=== PATIENT | male | born 1930 | race Caucasian/White ===

== ENCOUNTER 2019-10-26 10:14 | Inpatient (IN) ==
[2019-10-26 10:46] LABS: Basophils % 0.3 % (0.0-0.8); Eosinophils % 0.3 % (0.00-10.9); Hematocrit 26.3 VOL% (42.0-52.0); Immature Granulocytes % 2.3 %; Immature Granulocytes Absolute 0.27 #; Lymphocytes # 0.6 10*3/uL (1.4-4.0); Lymphocytes % 5.4 % (21.2-54.2); Mean Corpuscular HGB Conc 30.4 GM/DL (32-36); Mean Corpuscular Volume 89.2 FL (87-102); Mean Platelet Volume 12.4 FL (9.6-12.0); Monocytes % 7.7 % (1.7-12.7); NRBC # 0.02 10*3/uL; Platelet Count 185 T/CUMM (130-400); Red Blood Count 2.95 MC/CUMM (3.8-5.5); Red Cell Distribution Width 17.2 % (9.3-17.3); White Blood Count 11.8 T/CUMM (4-12)
[2019-10-26 10:54] LABS: PT Patient Result 11.1 SECS (9.6-12.2); Partial Thromboplastin Time 27.5 SECS (20.8-36.0)
[2019-10-26 11:06] LABS: Albumin 3.3 G/DL (3.4-5.0); Bilirubin,Total 0.9 MG/DL (0.2-1.0); Calcium 8.5 MG/DL (8.5-10.1); Osmolality,Calculated 297.1 MOS/KG (273-304); Total Protein 6.5 G/DL (6.4-8.3)
[2019-10-26] MEDS ORDERED: cefTRIAXone 1,000 MG in SODIUM CHLORIDE 0.9% 100 ML IV STA (11:27)
[2019-10-26] MEDS ORDERED: methylPREDNISolone SOD SUC 125 MG/2 ML VIAL IV STA (11:27)
[2019-10-26] MEDS ORDERED: ALBUTEROL/IPRATROPIUM 3 ML NEB RESP TX STA (11:27)
[2019-10-26 11:53] LABS: Albumin 3.3 G/DL (3.4-5.0); Bilirubin,Total 0.6 MG/DL (0.2-1.0); Calcium 8.2 MG/DL (8.5-10.1); Total Protein 6.1 G/DL (6.4-8.3)
[2019-10-26] MEDS ORDERED: FUROSEMIDE 100 MG/10 ML VIAL IV STA (12:16)
[2019-10-26] MEDS ORDERED: FUROSEMIDE 100 MG/10 ML VIAL ONE (12:16)
[2019-10-26] MEDS ORDERED: ACETAMINOPHEN 325 MG TABLET PO PRN (13:50)
[2019-10-26] MEDS ORDERED: ONDANSETRON 4 MG/2 ML VIAL IV PRN (13:50)
[2019-10-26 14:36] LABS: Apearance,Urine CLEAR (Clear); Bilirubin,Urine Negative (Negative); Blood, Urine Negative (Negative); Glucose,Urine (UA) Negative (Negative); Hyaline Casts,Urine 22 /LPF (0-3); Ketones,Urine Negative (Negative); Mucus,Urine Occasional /LPF (Occasional); Nitrite,Urine Negative (Negative); Protein,Urine Negative; RBC,Urine 2 /HPF (0-4); Squamous Epithelial Cell,Urine Occasional /HPF (0-10); Urine Color Yellow (Yellow); Urine Specific Gravity 1.012 (1.001-1.035); Urine Urobilinogen < 2.0 EU/DL (0.2-1.0); WBC,Urine 4 /HPF (0-6)
[2019-10-26] MEDS ORDERED: FUROSEMIDE 40 MG/4 ML VIAL IV SCH (16:00)
[2019-10-26] MEDS: ALBUTEROL/IPRATROPIUM 3 ML NEB RESP TX SCH (19:29)
[2019-10-27] MEDS: ALBUTEROL/IPRATROPIUM 3 ML NEB RESP TX SCH ×5 (00:12→23:37)
[2019-10-27 04:47] LABS: Basophils % 0.2 % (0.0-0.8); Hematocrit 23.6 VOL% (42.0-52.0); Hemoglobin 7.3 GM/DL (14.0-18.0); Immature Granulocytes % 2.9 %; Immature Granulocytes Absolute 0.16 #; Lymphocytes # 0.3 10*3/uL (1.4-4.0); Lymphocytes % 4.8 % (21.2-54.2); Mean Corpuscular HGB Conc 30.9 GM/DL (32-36); Mean Corpuscular Volume 86.8 FL (87-102); Mean Platelet Volume 13.1 FL (9.6-12.0); Monocytes % 1.8 % (1.7-12.7); NRBC # 0.03 10*3/uL; Neutrophils % 90.3 % (38.7-73.9); Platelet Count 168 T/CUMM (130-400); Red Blood Count 2.72 MC/CUMM (3.8-5.5); White Blood Count 5.5 T/CUMM (4-12)
[2019-10-27 05:08] LABS: Band Neutrophils 2 % (0-10); Hypochromasia 1+; Lymphocytes 4 % (20-55); Ovalocytes Slight; Platelet Estimate Adequate; Segmented Neutrophils 93 % (50-85); Total Cells Counted 100
[2019-10-27 05:27] LABS: Calcium 8.3 MG/DL (8.5-10.1); Osmolality,Calculated 297.2 MOS/KG (273-304)
[2019-10-27] MEDS: ASPIRIN EC 81 MG TABLET PO SCH (08:35)
[2019-10-27] MEDS: allopurinoL 300 MG TABLET PO SCH (08:35)
[2019-10-27] MEDS: FINASTERIDE 5 MG TABLET PO SCH (08:35)
[2019-10-27] MEDS: PANTOPRAZOLE 40 MG TABLET PO SCH (08:35)
[2019-10-27] MEDS: TAMSULOSIN 0.4 MG CAPSULE PO SCH (08:35)
[2019-10-27] MEDS: FUROSEMIDE 40 MG/4 ML VIAL IV SCH ×2 (08:35→16:47)
[2019-10-27] MEDS ORDERED: AMIODARONE 200 MG TABLET PO SCH (12:45)
[2019-10-27] MEDS: methylPREDNISolone SOD SUC 40 MG/1 ML VIAL IV SCH (13:23)
[2019-10-27 15:29] LABS: CKMB % 1.5 %
[2019-10-27 15:30] LABS: Troponin I 0.179 NG/ML (0.00-0.045)
[2019-10-27 17:33] LABS: CKMB % 1.4 %
[2019-10-27 17:36] LABS: Troponin I 0.179 NG/ML (0.00-0.045)
[2019-10-27 23:18] VITALS: BP 110/71
[2019-10-27 23:43] LABS: ABG Base Excess -8.9 MMOL/L (-2.5-2.5); ABG HCO3 17.2 MMOL/L (20-26); ABG Oxygen Saturation 97.6 % (95-100); ABG PCO2 34.2 MM HG (35-48); ABG PH 7.299 (7.35-7.45); ABG TCO2 15.9 MMOL/L (23-27); Allen Test Positive
[2019-10-27 23:46] LABS: Basophils % 0.4 % (0.0-0.8); Hematocrit 24.1 VOL% (42.0-52.0); Hemoglobin 7.4 GM/DL (14.0-18.0); Immature Granulocytes % 6.2 %; Immature Granulocytes Absolute 0.68 #; Lymphocytes # 0.7 10*3/uL (1.4-4.0); Lymphocytes % 6.6 % (21.2-54.2); Mean Corpuscular HGB Conc 30.7 GM/DL (32-36); Mean Corpuscular Volume 88.9 FL (87-102); Mean Platelet Volume 12.1 FL (9.6-12.0); Monocytes % 3.6 % (1.7-12.7); NRBC # 0.05 10*3/uL; Neutrophils % 83.2 % (38.7-73.9); Platelet Count 217 T/CUMM (130-400); Red Blood Count 2.71 MC/CUMM (3.8-5.5); Red Cell Distribution Width 17.1 % (9.3-17.3)
[2019-10-28] MEDS ORDERED: FUROSEMIDE 40 MG/4 ML VIAL IV ONE (00:09)
[2019-10-28] MEDS ORDERED: ALBUTEROL 2.5 MG/3 ML NEB RESP TX PRN (00:12)
[2019-10-28 00:13] LABS: Calcium 8.3 MG/DL (8.5-10.1); Osmolality,Calculated 293.9 MOS/KG (273-304)
[2019-10-28] MEDS: methylPREDNISolone SOD SUC 40 MG/1 ML VIAL IV SCH ×3 (00:25→20:24)
[2019-10-28] MEDS ORDERED: MEROPENEM 500 MG in SODIUM CHLORIDE 0.9% 100 ML IV ONE (00:30)
[2019-10-28 00:36] LABS: Band Neutrophils 1 % (0-10); Lymphocytes 7 % (20-55); Myelocytes 4 %; Segmented Neutrophils 86 % (50-85); Total Cells Counted 100
[2019-10-28 00:37] LABS: Ovalocytes 1+; Platelet Estimate Normal; Polychromasia Few
[2019-10-28 00:38] LABS: Hypochromasia 1+
[2019-10-28] MEDS ORDERED: VANCOMYCIN INJ 2,000 MG in SODIUM CHLORIDE 0.9% 500 ML IV ONE (01:00)
[2019-10-28 04:32] LABS: Basophils % 0.3 % (0.0-0.8); Hematocrit 22.8 VOL% (42.0-52.0); Hemoglobin 7.2 GM/DL (14.0-18.0); Immature Granulocytes % 3.8 %; Lymphocytes # 0.3 10*3/uL (1.4-4.0); Lymphocytes % 3.8 % (21.2-54.2); Mean Corpuscular HGB Conc 31.6 GM/DL (32-36); Mean Platelet Volume 12.6 FL (9.6-12.0); Monocytes % 3.5 % (1.7-12.7); NRBC # 0.03 10*3/uL; Neutrophils % 88.6 % (38.7-73.9); Platelet Count 172 T/CUMM (130-400); Red Blood Count 2.62 MC/CUMM (3.8-5.5); Red Cell Distribution Width 16.9 % (9.3-17.3); White Blood Count 7.9 T/CUMM (4-12)
[2019-10-28 04:55] LABS: Band Neutrophils 1 % (0-10); Hypochromasia 1+; Lymphocytes 2 % (20-55); Myelocytes 2 %; Nucleated Red Blood Cells 1 (0-5); Ovalocytes Slight; Platelet Estimate Adequate; Segmented Neutrophils 93 % (50-85); Total Cells Counted 100
[2019-10-28 05:03] LABS: Osmolality,Calculated 299.5 MOS/KG (273-304)
[2019-10-28] MEDS: ALBUTEROL/IPRATROPIUM 3 ML NEB RESP TX SCH ×3 (07:32→19:40)
[2019-10-28] MEDS ORDERED: FUROSEMIDE 40 MG/4 ML VIAL IV SCH (09:02)
[2019-10-28] MEDS ORDERED: metOLazone 5 MG TABLET PO ONE (09:07)
[2019-10-28] MEDS: FUROSEMIDE 40 MG/4 ML VIAL IV SCH ×3 (09:21→15:25)
[2019-10-28] MEDS: allopurinoL 300 MG TABLET PO SCH (09:39)
[2019-10-28] MEDS: PANTOPRAZOLE 40 MG TABLET PO SCH (09:39)
[2019-10-28] MEDS: TAMSULOSIN 0.4 MG CAPSULE PO SCH (09:39)
[2019-10-28] MEDS: amLODIPine 5 MG TABLET PO SCH (09:39)
[2019-10-28] MEDS: ASPIRIN EC 81 MG TABLET PO SCH (09:39)
[2019-10-28] MEDS: FINASTERIDE 5 MG TABLET PO SCH (09:39)
[2019-10-29] MEDS: ALBUTEROL/IPRATROPIUM 3 ML NEB RESP TX SCH ×3 (00:15→13:52)
[2019-10-29] MEDS ORDERED: LORazepam 2 MG/1 ML VIAL IV ONE (01:41)
[2019-10-29 04:46] LABS: Basophils % 0.4 % (0.0-0.8); Hematocrit 23.3 VOL% (42.0-52.0); Hemoglobin 7.3 GM/DL (14.0-18.0); Immature Granulocytes % 6.4 %; Immature Granulocytes Absolute 0.71 #; Lymphocytes # 0.3 10*3/uL (1.4-4.0); Lymphocytes % 2.7 % (21.2-54.2); Mean Corpuscular HGB Conc 31.3 GM/DL (32-36); Mean Corpuscular Volume 87.3 FL (87-102); Mean Platelet Volume 12.4 FL (9.6-12.0); NRBC # 0.05 10*3/uL; Neutrophils % 87.5 % (38.7-73.9); Platelet Count 207 T/CUMM (130-400); Red Blood Count 2.67 MC/CUMM (3.8-5.5); Red Cell Distribution Width 17.1 % (9.3-17.3); White Blood Count 11.1 T/CUMM (4-12)
[2019-10-29 05:21] LABS: Calcium 8.2 MG/DL (8.5-10.1); Ferritin 230.9 ng/ml (26-388); Osmolality,Calculated 299.9 MOS/KG (273-304); Thyroid Stimulating Hormone 0.845 uIU/ml (0.358-3.74)
[2019-10-29 05:29] LABS: Folate 8.9 NG/ML (5.4-24.0); Vitamin B12 335 PG/ML (211-911)
[2019-10-29 06:08] LABS: Band Neutrophils 1 % (0-10); Lymphocytes 4 % (20-55); Metamyelocytes 2 %; Nucleated Red Blood Cells 1 (0-5); Platelet Estimate Normal; Segmented Neutrophils 89 % (50-85); Total Cells Counted 100
[2019-10-29 06:09] LABS: Anisocytosis 2+; Giant Platelets Few; Macrocytosis 2+
[2019-10-29 07:16] LABS: Sedimentation Rate-Westergren 52 MM/HR (0-20)
[2019-10-29] MEDS: methylPREDNISolone SOD SUC 40 MG/1 ML VIAL IV SCH (09:32)
[2019-10-29] MEDS: FUROSEMIDE 40 MG/4 ML VIAL IV SCH ×2 (09:37→17:41)
[2019-10-29] MEDS: amLODIPine 5 MG TABLET PO SCH (09:46)
[2019-10-29] MEDS: FINASTERIDE 5 MG TABLET PO SCH (09:46)
[2019-10-29] MEDS: TAMSULOSIN 0.4 MG CAPSULE PO SCH (09:46)
[2019-10-29] MEDS: PANTOPRAZOLE 40 MG TABLET PO SCH (09:46)
[2019-10-29] MEDS: ASPIRIN EC 81 MG TABLET PO SCH (09:46)
[2019-10-29] MEDS: allopurinoL 300 MG TABLET PO SCH (09:46)
[2019-10-29] MEDS ORDERED: HALOPERIDOL 5 MG/ML AMP IV PRN (10:59)
[2019-10-29] MEDS ORDERED: EPINEPHrine 1 MG/10 ML SYRINGE ONE (19:00)
[2019-10-31 10:21] LABS: Hemoglobin A1 (Alkaline) 96.8 % (96.5-98.5); Hemoglobin A2 (Alkaline) 3.2 % (1.5-3.5)
== END 2019-10-29 17:58 | disposition expired | DRG 291 ==
LOC: N.ED 10:14 → N.EDINP 13:50 → SUPCPDRO 13:50 → N.5E 15:04 → N.CC 10-27 23:57
PROVIDERS: ADMIT Internal Medicine; ATTEND Internal Medicine